=== PATIENT | male | born 1945 | race Caucasian/White ===

== ENCOUNTER 2023-07-13 09:01 | Inpatient (IN) | payer MEDICARE, BC ==
[~2023-07-13] VITALS: Ht 185.4 cm; Wt 80.7 kg
[2023-07-13] MEDS ORDERED: IV NS 0.9% 1,000 ML IV ONE (09:30)
[2023-07-13 09:41] LABS: BASOPHILS # (AUTO) 0.1 K/uL (0.0-0.2); BASOPHILS % (AUTO) 0.7 % (0.0-2.0); EOSINOPHILS # (AUTO) 0.2 K/uL (0.0-0.7); EOSINOPHILS % (AUTO) 2.3 % (0.0-6.0); HEMATOCRIT 31 % (39-51); HEMOGLOBIN 10.2 g/dL (13.5-17.5); LYMPHOCYTES # (AUTO) 0.6 K/uL (0.8-4.8); LYMPHOCYTES % (AUTO) 6.6 % (20.0-44.0); MEAN CORPUSCULAR HEMOGLOBIN 33 PG (26.0-33.0); MEAN CORPUSCULAR HGB CONC 33 g/dl (31.0-36.0); MEAN CORPUSCULAR VOLUME 99 fL (80-96); MONOCYTES # (AUTO) 0.5 K/uL (0.1-1.30); MONOCYTES % (AUTO) 5.4 % (2.0-12.0); PLATELET COUNT (AUTO) 201 K/uL (150-450); RED BLOOD CELL COUNT(AUTO) 3.13 MIL/uL (4.5-6.0); RED CELL DISTRIBUTION WIDTH 17.3 % (11.5-15.0); WHITE BLOOD COUNT (AUTO) 9.5 K/uL (4.3-11.0)
[2023-07-13 09:52] LABS: CREATININE 1.1 mg/dL (0.6-1.3); POTASSIUM 3.4 mmol/L (3.5-5.1)
[2023-07-13 09:54] LABS: INR 1.16 (0.91-1.10); PROTHROMBIN TIME 12.2 SECS (9.2-11.1)
[2023-07-13 10:13] LABS: ALBUMIN 2.8 g/dL (3.4-5.0); BILIRUBIN,TOTAL 0.9 mg/dL (0.2-1.0); TOTAL PROTEIN, SERUM 7.3 g/dL (6.4-8.2)
[2023-07-13] MEDS ORDERED: METO25TA6 PO (10:22)
[2023-07-13] MEDS ORDERED: DILT180C93 PO (10:22)
[2023-07-13] MEDS ORDERED: MELA3TAB41 PO (10:22)
[2023-07-13] MEDS ORDERED: TEMA7.5C12 PO (10:22)
[2023-07-13] MEDS ORDERED: PILO5TAB10 PO (10:22)
[2023-07-13] MEDS ORDERED: TRIA80CR12 TP (10:22)
[2023-07-13] MEDS ORDERED: ACET-2605 PO (10:22)
[2023-07-13] MEDS ORDERED: L. A1TAB10 PO (10:22)
[2023-07-13] MEDS ORDERED: APIX5TAB PO (10:22)
[2023-07-13] MEDS ORDERED: ACET-868 PO (10:22)
[2023-07-13] MEDS ORDERED: DESV100T PO (10:22)
[2023-07-13] MEDS ORDERED: CLOT15CR35 TP (10:22)
[2023-07-13] MEDS ORDERED: VANC50SO3 PO ×2 (10:22)
[2023-07-13] MEDS ORDERED: POTASSIUM CHLORIDE 20 MEQ TAB.PRT.SR PO ONE ×2 (10:30→10:31)
[2023-07-13] MEDS ORDERED: METOPROLOL TARTRATE 25 MG TABLET PO ONE (23:30)
[2023-07-13] MEDS ORDERED: LIDOCAINE 2% JEL UROJET 10 ML MM ONE (23:41)
[2023-07-13] MEDS ORDERED: METOPROLOL TARTRATE 25 MG TABLET ONE (23:54)
[2023-07-14 00:07] LABS: APPEARANCE,URINE CLEAR (CLEAR); BILIRUBIN,URINE 1+ (NEGATIVE); BLOOD, URINE NEGATIVE Ery/uL (NEGATIVE); COLOR,URINE YELLOW (YELLOW); KETONES,URINE 1+ mg/dL (NEGATIVE); LEUKOCYTE ESTERASE ,URINE NEGATIVE (NEGATIVE); NITRITE, URINE NEGATIVE (NEGATIVE); PH,URINE 5.5 (5.0-8.0); PROTEIN,URINE TRACE mg/dl (NEGATIVE); UGLUCOSE NEGATIVE (NEGATIVE); UROBILINOGEN,URINE 0.2 EU/dL (0.2)
[2023-07-14 00:12] LABS: ADD URINE CULTURE NO; BACTERIA,URINE Rare /HPF (None Seen); RBC,URINE 0-2 /HPF (0-2); SQUAMOUS EPITHELIAL CELL,UR Few /HPF (None Seen); WBC,URINE 0-2 /HPF (0-3)
[2023-07-14] MEDS ORDERED: IV NS 0.9% 500 ML BAG IV ONE (01:00)
[2023-07-14] MEDS ORDERED: MORPHINE SULFATE INJ 2 MG/ML DISP.SYRIN IV PRN (02:30)
[2023-07-14] MEDS ORDERED: ONDANSETRON HCL/PF 4 MG/2 ML VIAL IVP PRN (02:30)
[2023-07-14] MEDS ORDERED: hydrALAZINE HCL IV 20 MG VIAL IV PRN (02:30)
[2023-07-14] MEDS ORDERED: VANCOMYCIN 500 MG VIAL PO ONE (03:00)
[2023-07-14] MEDS ORDERED: VANCOMYCIN 500 MG VIAL ONE (03:04)
[2023-07-14] MEDS ORDERED: VANCOMYCIN HCL 125 MG/2.5 ML ORAL.SUSP PO SCH (03:30)
[2023-07-14] MEDS ORDERED: VANCOMYCIN PO SCH (06:00)
[2023-07-14] MEDS ORDERED: APIXABAN 5 MG TABLET PO SCH (09:00)
[2023-07-14] MEDS ORDERED: Medication Not On Formulary EA (Desvenlafaxine Succinate (Pristiq) 100 MG) PO SCH (09:00)
[2023-07-14] MEDS: PILOCARPINE HCL 5 MG TABLET PO SCH ×2 (10:55→17:14)
[2023-07-14] MEDS: APIXABAN 5 MG TABLET PO SCH ×2 (10:55→17:00)
[2023-07-14] MEDS: DILTIAZEM HCL CD 180 MG PO SCH (10:56)
[2023-07-14] MEDS: METOPROLOL TARTRATE 25 MG TABLET PO SCH ×2 (10:57→17:14)
[2023-07-14] MEDS: CLOTRIMAZOLE 1% 15 GM TUBE TP SCH (10:57)
[2023-07-14] MEDS: VANCOMYCIN FOR PO/GT USE 500 MG ORAL.SUSP PO SCH (12:05)
[2023-07-14 16:13] VITALS: BP 120/81; TEMP 98; O2SAT 97
[2023-07-14] MEDS: ACETAMINOPHEN 325 MG TABLET PO PRN (17:19)
[2023-07-14 20:00] VITALS: BP 104/64; TEMP 98.2; O2SAT 95
[2023-07-14] MEDS: TEMAZEPAM 7.5 MG CAPSULE PO SCH (21:12)
[2023-07-15] VITALS: BP 116/68; TEMP 98.4; O2SAT 95
[2023-07-15 04:00] VITALS: BP 133/72; TEMP 98.1; O2SAT 97
[2023-07-15 07:30] VITALS: BP 133/85; TEMP 98.1; O2SAT 97
[2023-07-15 07:34] LABS: BASOPHILS % (AUTO) 0.4 % (0.0-2.0); EOSINOPHILS # (AUTO) 0.3 K/uL (0.0-0.7); EOSINOPHILS % (AUTO) 3.5 % (0.0-6.0); HEMATOCRIT 29 % (39-51); HEMOGLOBIN 9.6 g/dL (13.5-17.5); LYMPHOCYTES # (AUTO) 0.7 K/uL (0.8-4.8); LYMPHOCYTES % (AUTO) 7.9 % (20.0-44.0); MEAN CORPUSCULAR HEMOGLOBIN 33 PG (26.0-33.0); MEAN CORPUSCULAR HGB CONC 34 g/dl (31.0-36.0); MEAN CORPUSCULAR VOLUME 99 fL (80-96); MONOCYTES # (AUTO) 0.4 K/uL (0.1-1.30); MONOCYTES % (AUTO) 4.9 % (2.0-12.0); NEUTROPHILS # (AUTO) 7.2 K/uL (1.8-8.9); NEUTROPHILS % (AUTO) 83.3 % (43.0-81.0); PLATELET COUNT (AUTO) 203 K/uL (150-450); RED BLOOD CELL COUNT(AUTO) 2.89 MIL/uL (4.5-6.0); RED CELL DISTRIBUTION WIDTH 17.2 % (11.5-15.0); WHITE BLOOD COUNT (AUTO) 8.7 K/uL (4.3-11.0)
[2023-07-15 08:00] LABS: ALBUMIN 2.7 g/dL (3.4-5.0); BILIRUBIN,TOTAL 0.8 mg/dL (0.2-1.0); CALCIUM, SERUM 9.1 mg/dL (8.5-10.1); CREATININE 1.1 mg/dL (0.6-1.3); MAGNESIUM 2.1 mg/dL (1.8-2.4); PHOSPHORUS 3.1 mg/dL (2.5-4.9); POTASSIUM 3.5 mmol/L (3.5-5.1); TOTAL PROTEIN, SERUM 7.3 g/dL (6.4-8.2)
[2023-07-15] MEDS: PILOCARPINE HCL 5 MG TABLET PO SCH ×2 (08:23→16:26)
[2023-07-15] MEDS: DILTIAZEM HCL CD 180 MG PO SCH (08:23)
[2023-07-15] MEDS: METOPROLOL TARTRATE 25 MG TABLET PO SCH ×2 (08:24→16:28)
[2023-07-15] MEDS: APIXABAN 5 MG TABLET PO SCH ×2 (09:00→16:28)
[2023-07-15] MEDS: VANCOMYCIN FOR PO/GT USE 500 MG ORAL.SUSP PO SCH (09:29)
[2023-07-15] MEDS: CLOTRIMAZOLE 1% 15 GM TUBE TP SCH (09:29)
[2023-07-15 16:00] VITALS: BP 120/74; TEMP 98.2; O2SAT 96
[2023-07-15 20:00] VITALS: BP 120/72; TEMP 98.2; O2SAT 97
[2023-07-15] MEDS: ACETAMINOPHEN 325 MG TABLET PO PRN (21:01)
[2023-07-15] MEDS: TEMAZEPAM 7.5 MG CAPSULE PO SCH (21:01)
[2023-07-15] MEDS ORDERED: OLANZAPINE 10 MG VIAL IM PRN (22:30)
[2023-07-16] VITALS: BP 142/76; TEMP 97.7; O2SAT 95
[2023-07-16 04:00] VITALS: BP 144/73; TEMP 97.7; O2SAT 95
[2023-07-16 07:16] LABS: BASOPHILS % (AUTO) 0.6 % (0.0-2.0); EOSINOPHILS # (AUTO) 0.2 K/uL (0.0-0.7); EOSINOPHILS % (AUTO) 2.8 % (0.0-6.0); HEMATOCRIT 28 % (39-51); HEMOGLOBIN 9.3 g/dL (13.5-17.5); LYMPHOCYTES # (AUTO) 0.7 K/uL (0.8-4.8); LYMPHOCYTES % (AUTO) 9.9 % (20.0-44.0); MEAN CORPUSCULAR HEMOGLOBIN 33 PG (26.0-33.0); MEAN CORPUSCULAR HGB CONC 34 g/dl (31.0-36.0); MEAN CORPUSCULAR VOLUME 98 fL (80-96); MONOCYTES # (AUTO) 0.4 K/uL (0.1-1.30); MONOCYTES % (AUTO) 5.2 % (2.0-12.0); NEUTROPHILS % (AUTO) 81.5 % (43.0-81.0); PLATELET COUNT (AUTO) 197 K/uL (150-450); RED BLOOD CELL COUNT(AUTO) 2.83 MIL/uL (4.5-6.0); WHITE BLOOD COUNT (AUTO) 7.4 K/uL (4.3-11.0)
[2023-07-16 07:30] VITALS: BP 134/88; TEMP 98.1; O2SAT 98
[2023-07-16 08:13] LABS: CREATININE 1.1 mg/dL (0.6-1.3); POTASSIUM 3.6 mmol/L (3.5-5.1)
[2023-07-16] MEDS: DILTIAZEM HCL CD 180 MG PO SCH (08:49)
[2023-07-16] MEDS: METOPROLOL TARTRATE 25 MG TABLET PO SCH ×2 (08:51→17:54)
[2023-07-16] MEDS: APIXABAN 5 MG TABLET PO SCH ×2 (08:53→17:59)
[2023-07-16] MEDS: PILOCARPINE HCL 5 MG TABLET PO SCH ×2 (09:22→17:54)
[2023-07-16] MEDS: VANCOMYCIN FOR PO/GT USE 500 MG ORAL.SUSP PO SCH (09:22)
[2023-07-16] MEDS: CLOTRIMAZOLE 1% 15 GM TUBE TP SCH (09:34)
[2023-07-16 16:00] VITALS: BP 107/67; TEMP 97.7; O2SAT 98
[2023-07-16 21:29] VITALS: BP 115/67; TEMP 98.8; O2SAT 96
[2023-07-16] MEDS: TEMAZEPAM 7.5 MG CAPSULE PO SCH (21:34)
[2023-07-17] VITALS: BP 131/86; TEMP 99; O2SAT 94
[2023-07-17 05:00] VITALS: BP 123/78; TEMP 98.9; O2SAT 94
[2023-07-17 08:00] VITALS: BP 109/64; TEMP 100.3; O2SAT 96
[2023-07-17] MEDS ORDERED: HYDR-4209 PO (09:24)
[2023-07-17] MEDS: VANCOMYCIN FOR PO/GT USE 500 MG ORAL.SUSP PO SCH (10:17)
[2023-07-17] MEDS: CLOTRIMAZOLE 1% 15 GM TUBE TP SCH (10:18)
[2023-07-17] MEDS: PILOCARPINE HCL 5 MG TABLET PO SCH (10:19)
[2023-07-17 10:20] VITALS: BP 109/64
[2023-07-17] MEDS: DILTIAZEM HCL CD 180 MG PO SCH (10:20)
[2023-07-17] MEDS: METOPROLOL TARTRATE 25 MG TABLET PO SCH (10:20)
[2023-07-17] MEDS: APIXABAN 5 MG TABLET PO SCH (10:24)
== END 2023-07-17 12:30 | DRG 157 ==
LOC: ER 09:01 → TELE 07-14 06:14
PROVIDERS: ADMIT Internal Medicine; ATTEND Internal Medicine
DX: K06.8 Other specified disorders of gingiva and edentulous alveolar ridge (principal); E43 Unspecified severe protein-calorie malnutrition; A04.72 Enterocolitis due to Clostridium difficile, not specified as recurrent; D68.69 Other thrombophilia; E86.0 Dehydration; I48.91 Unspecified atrial fibrillation; Z79.01 Long term (current) use of anticoagulants; D53.9 Nutritional anemia, unspecified; E87.6 Hypokalemia; Z92.3 Personal history of irradiation; Z20.822 Contact with and (suspected) exposure to COVID-19; E88.09 Other disorders of plasma-protein metabolism, not elsewhere classified; Z74.09 Other reduced mobility; G20.A1 Parkinson's disease without dyskinesia, without mention of fluctuations; Z85.818 Personal history of malignant neoplasm of other sites of lip, oral cavity, and pharynx; Y84.2 Radiological procedure and radiotherapy as the cause of abnormal reaction of the patient, or of later complication, without mention of misadventure at the time of the procedure; Y78.8 Miscellaneous radiological devices associated with adverse incidents, not elsewhere classified; Y92.129 Unspecified place in nursing home as the place of occurrence of the external cause; R58 Hemorrhage, not elsewhere classified
CPT/HCPCS: 36415; 70450-TC; 71045-TC; 80048-TC; 80053-TC; 81001; 82140-TC; 83605-TC; 83735-TC; 83880; 84100-TC; 84484-TC; 85025-TC; 85610-TC; 87040-TC; 87081-TC; 93307-TC; 97112-TC; 97116-TC; 97530-TC; G0378; J2270; J3370; J3490; J7030